=== PATIENT | male | born 1945 | race Caucasian/White ===

== ENCOUNTER 2021-06-08 10:56 | Inpatient (IN) | payer OTHER, MEDICARE, BC ==
[~2021-06-08] VITALS: Ht 190.5 cm; Wt 111.2 kg
[~2021-06-08 10:56] MED LIST: ASPIRIN E.C. 8181 MG PO; FLOMAX 0.40.4 MG/CAP PO; NORVASC 10MG10 MG PO; OMEGA 31000 MG PO; ZIAC 10/6.25M1 UDTAB PO; ZYLOPRIM 300MG300 MG PO
[2021-06-23] VITALS (10 sets, daily range): BP systolic 117–161; BP diastolic 52–88; PULSE 47–84; TEMP 97.9–98.2
[2021-06-23] MEDS ORDERED: FISH OIL 1000MG1 CAP PO (06:01)
[2021-06-23] MEDS ORDERED: VITAMIN D31000 IU PO (06:02)
[2021-06-23] MEDS ORDERED: ZESTORETIC 25 M1 TAB PO (06:02)
[2021-06-23] MEDS ORDERED: FLOMAX 0.40.4 MG/CAP PO (06:03)
[2021-06-23] MEDS ORDERED: GLUCOPHAGE1000 MG PO (06:03)
[2021-06-23] MEDS ORDERED: NORVASC 10MG10 MG PO (06:03)
[2021-06-23] MEDS ORDERED: ZYLOPRIM 300MG300 MG PO (06:04)
--- NOTE | 2021-06-23 06:50 | NUR ---
0545: Patient arrived. Patient and escorted to bay 8 and prepped for OR. 0650: Patient's belongings brought over to PACU. Patient's reading glasses placed in case, labeled and put into patient belongings bag.
[2021-06-23] MEDS ORDERED: COLACE 100100 MG/CAP PO (07:17)
[2021-06-23] MEDS ORDERED: NORCO 325 MG-51 TAB PO (07:18)
--- NOTE | 2021-06-23 12:25 | NUR ---
PATIENT ADMITED INTO ROOM 348 POST OP. ORIENTED BUT DROWSY. VSS. DENIES PAIN OR NAUSEA. ABD IS ROUNDED, TIGHT AND WITH HYPO BOWL SOUNDS. ABD LAP SITES X4 ARE CD&I WITH GLUED CLOSURE. AIDAN DRAIN TO COMPRESSION WITH SMALL AMOUNTS OF DRAINAGE NOTED. LYLE TO DD WITH SMALL AMOUNTS OF RED URINE NOTED. IV FLUIDS INFUSING INTO RIGHT FORARM IV. LIQUIDS AT BEDSIDE. BS IN PACU WAS 151. HEAD TO TOE ASSESSMENT COMPLETE, SEE CHARTING. ORIENTED TO ROOM. AT BEDSIDE. CALL LIGHT IN REACH.
[2021-06-24 00:06] VITALS: BP 157/62; PULSE 76; TEMP 97.9
[2021-06-24 03:45] VITALS: BP 158/64; PULSE 61; TEMP 98.4
[2021-06-24 07:12] VITALS: BP 143/57; PULSE 57; TEMP 98.3
[2021-06-24 08:07] LABS: BASO % 0.4 % (0.0-2.0); EOS # 0.1 K/mm3 (0.0-0.7); EOS % 1.2 % (0.0-4.0); GRAN # 5.7 K/mm3 (1.4-6.5); GRAN % 77.6 % (42.2-75.2); HEMATOCRIT 38.2 % (42.0-52.0); HEMOGLOBIN 12.8 g/dl (13.5-18.0); LYMPH # 0.7 K/mm3 (1.2-3.4); LYMPH % 9.6 % (20.0-51.0); MEAN CELL VOLUME 86 fl (80.0-100.0); MEAN CORPUSCULAR HEMOGLOBIN 29 pg (27-31); MEAN CORPUSCULAR HGB CONC 34 g/dl (33.0-37.0); MEAN PLATELET VOLUME 10.7 fl (7.4-10.4); MONO # 0.8 K/mm3 (0.1-0.6); MONO % 10.7 % (1.7-9.3); PLATELET COUNT 186 K/mm3 (130-400); RED BLOOD COUNT 4.42 M/mm3 (4.20-5.60); REDCELL DISTRIBUTION WIDTH-CV 13.2 % (11.5-14.5)
[2021-06-24 08:10] LABS: CALCIUM 9.1 mg/dL (8.4-10.2); CREATININE, serum 1.29 mg/dL (0.72-1.25); POTASSIUM 3.9 mmol/L (3.5-4.5)
--- NOTE | 2021-06-24 09:00 | NUR ---
Patient assessment completed. rounded this am. Plan of care reviewed. Patient up and we ambulated the halls. He did well. Tee drain to compression. Robotic lap site edges well approximated. Bowels audible. Palomares to oscar. Martinez reports palomares in the past & he will discharge home with palomares this admission as well. He tolerated breakfast. Will monitor.
--- NOTE | 2021-06-24 09:37 | NUR ---
Initial visit; Patient thanked Flight Control Manager for looking in on him and offering spiritual care and to keep him in Flight Control Manager's prayers.
[2021-06-24 12:17] VITALS: BP 139/90; PULSE 63; TEMP 97.9
--- NOTE | 2021-06-24 12:50 | NUR ---
Patient tolerated lunch. Tyelnol per eras protocol
--- NOTE | 2021-06-24 14:40 | NUR ---
Patient tolerated Tee drain removal. Salcedo drained.
[2021-06-24 16:15] VITALS: BP 145/77; PULSE 63; TEMP 98.1
--- NOTE | 2021-06-24 16:24 | NUR ---
Locksmith Helper met with patient to discuss discharge planning. Patient lives with his , Josselin (ph#[phone]) in [place] and sees Dr. Patel for primary care. [facility] and does not use any D[facility]. Patient reports independence with ADLS and plans to return home upon discharge. Patient does not have Advance Directives and is not interested in designating DPOA-HC at this time. RICK and LAZARA Espino met with patient and his , Josselin to present and review MAGANA form as patient was downgraded to outpatient status. Patient and refused to sign form and expressed frustrated that patient's status was changed.
--- NOTE | 2021-06-24 17:00 | NUR ---
Patient has decided he is ready for discharge. made aware. Orders obtained. I spoke to [facility] office nurse & patient set up for outpatient cystectomy & follow up appt next week. We reivewed these at discharge. Patient given palomares cares & education. Patient reports he has had palomares before & feels fairly knowledgable. Patient dc with Leg bag on. He applied himself, supplies sent with patient. Patient and his staying staying at his sons house here in town. He will not being driving in poor weather back to [place]. Int Dc. Patient wheeled out with all belongings. His taking him.
== END 2021-06-24 19:28 | disposition home or self-care (01) | DRG 655 ==
LOC: INPTSU 06-23 05:36 → SURG 06-23 05:36
PROVIDERS: ADMIT Urology
PROC: 8E0W4CZ Robotic Assisted Procedure of Trunk Region, Percutaneous Endoscopic Approach (ICD-10-PCS; 2021-06-23)
PROC: 0TBB4ZZ Excision of Bladder, Percutaneous Endoscopic Approach (ICD-10-PCS; principal; 2021-06-23 07:30)
PROC: 0T734DZ Dilation of Right Kidney Pelvis with Intraluminal Device, Percutaneous Endoscopic Approach (ICD-10-PCS; 2021-06-23 07:30)
DX: N32.3 Diverticulum of bladder (principal); N40.0 Benign prostatic hyperplasia without lower urinary tract symptoms; E11.9 Type 2 diabetes mellitus without complications; I10 Essential (primary) hypertension; M10.9 Gout, unspecified
CPT/HCPCS: A4314; A9284; C1769; C2617; J0330; J0690; J1170; J1650; J2250; J2405; J2704; J3010; J7120

== ENCOUNTER → 2021-07-02 | Outpatient (CLI) | payer OTHER, BC ==
[~2021-07-02] MED LIST changes: +COLACE 100100 MG/CAP PO; +FISH OIL 1000MG1 CAP PO; +GLUCOPHAGE1000 MG PO; +NORCO 325 MG-51 TAB PO; +VITAMIN D31000 IU PO; +ZESTORETIC 25 M1 TAB PO
== END ==
LOC: COL.RAD 07:37
DX: N32.3 Diverticulum of bladder (principal); N13.70 Vesicoureteral-reflux, unspecified
CPT/HCPCS: Q9967